=== PATIENT | female | born 1995 | race Caucasian/White ===

== ENCOUNTER 2023-02-02 09:32 | Inpatient (IN) | payer OTHER, SELFPAY ==
--- NOTE | 2023-01-24 14:14 | HP.PCM_ITS ---
History and Physical Date of Admission: 02/02/23 fHPI: The patient is a 27 year old female presenting for pre-operative visit. She is scheduled for , for elective primary c/s on 02/02/23. Procedure discussed along with risks, benefits and complications. Other alternatives discussed for management. Consent form signed? Yes. ? ? PAST MEDICAL HISTORY PAST MEDICAL HISTORY Diagnosis Date ? Allergies ? ? Asthma ? ? ? PAST SURGICAL HISTORY PAST SURGICAL HISTORY Procedure Laterality Date ? MYRINGOTOMY W TUBE,BILATERAL(2) ? ? ? PAST SURGICAL HISTORY OF Left 11/10/2016 ? left knee reconstruction ? PAST SURGICAL HISTORY OF Left ? ? knee ? ? ? CURRENT MEDICATIONS Current Outpatient Medications Medication Sig Dispense Refill ? blood sugar diagnostic test strip 1 Strip four times daily. Use as instructed 120 Strip 9 ? Lancets lancets 1 Each four times daily. Use as instructed 120 Each 9 ? prental multivitamin 27 mg iron- 800 mcg tablet Take 1 tablet by mouth once daily. ? ? ? fexofenadine (GABINO) 180 mg tablet Take 180 mg by mouth once daily. ? ? ? albuterol HFA (PROVENTIL HFA, VENTOLIN HFA) 90 mcg/actuation inhaler Inhale 2 Puffs as instructed. ? ? ? epinephrine (EPIPEN INJECTION) Inject intramuscularly as needed. ? ? ? No current facility-administered medications for this visit. ? ? ALLERGIES: Dilaudid [Hydromorphone (Bulk)], [place], Pollen Extracts, Ragweed Pollen, and Red Dye ? PERSONAL HISTORY: SOCIAL HISTORY Social History ? Tobacco Use ? Smoking status: Never ? Smokeless tobacco: Never Vaping Use ? Vaping Use: Never used Substance Use Topics ? Alcohol use: Not Currently ? ? Comment: occasional glass of wine ? Drug use: Never ? FAMILY HISTORY: FAMILY HISTORY FAMILY HISTORY Problem Relation Age of Onset ? No Known Problems Mother ? ? No Known Problems Father ? ? No Known Problems Sister ? ? other (congenital hearing deficit) Sister ? ? other (hearing deficit) Brother ? ? Breast Cancer Maternal Grandmother ? ? No Known Problems Maternal Grandfather ? ? other (stomach cancer) Paternal Grandmother ? ? Stroke Paternal Grandfather ? ? ? REVIEW OF SYMPTOMS: GENERAL: denies fevers or chills ENDOCRINOLOGY: has not been on steroids Cardiology : denies palpitations or chest pain Respiratory: denies SOB or cough Hematology: denies history of prolonged bleeding or easy bruising or VTE Allergy: Denies history of personal or family history of allergy to anesthesia ? PHYSICAL EXAMINATION: ? VITALS: Last menstrual period 05/05/2022. ? GENERAL: The patient is well nourished, well hydrated in no acute distress. , The patient is oriented to time, place, and person. NECK: Supple. No lynphadenopathy, normal thyroid, no thyromegaly. LUNGS: Clear to auscultation bilaterally. no wheezes, rhonchi or rales HEART: Regular rate and rhythm, Normal heart sounds, and No murmurs or gallops ? IMPRESSION: Estimated Date of Delivery: 02/09/23 G1 for primary elective c/s ? PLAN: The risks/benefits/alternatives and personal involved for the planned c- s were reviewed with the patient. Her questions were answered to her satisfaction and she desires to proceed. Consent was signed. I reviewed with her postop instructions and expectations. ? ? I have reviewed and updated past medical and surgical history, medications and allergies
[2023-02-02] VITALS (18 sets, daily range): BP systolic 81–123; BP diastolic 43–83; PULSE 60–90; RESP 16–18; TEMP 36.2–37.1; O2SAT 95–100; BMI 27.8
[2023-02-02] MEDS: Lactated Ringers 1,000 ML 999 ML IV (10:05)
[2023-02-02 10:32] LABS: Absolute Lymphocyte Count 2.24 X10^3/uL (0.83-4.51); Absolute Neutrophil Count 7.3 X10^3/uL (2.0-7.7); Basophil# 0.03 X10^3/uL; Basophil% 0.3 % (0-1); Eosinophil# 0.08 X10^3/uL; Eosinophils% 0.8 % (0-5); Hematocrit 38.6 % (37-47); Lymphocyte # 2.24 X10^3/ul (0.83-4.51); Lymphocyte % 21.8 % (19-41); Mean Corp Hgb Conc 33.7 g/dL (32-36); Mean Corpuscular Volume 92.1 fL (81-99); Mean Platelet Vol. 10.3 fl (6.2-12.0); Monocyte# 0.57 X10^3/uL; Monocyte% 5.5 % (0-10); NRBC Flagged by Analyzer 0 % (0-5); Neutrophil # 7.31 X10^3/uL (2.7-7.7); Neutrophil % 71.1 % (47-70); Platelet Count 335 K/mm3 (150-450); RBC Distribution Width CV 12.7 % (11.6-14.6); RBC Distribution Width SD 42.4 fl (35.1-43.9); Red Blood Count 4.19 M/mm3 (4.2-5.4); White Blood Count 10.3 K/mm3 (4.4-11.0)
[2023-02-02 10:40] LABS: Bedside Glucose 87 mg/dL (74-106)
[2023-02-02] MEDS: Acetaminophen 500 MG Tablet 1000 MG PO ×3 (10:56→23:09)
[2023-02-02] MEDS: Lactated Ringers 1,000 ML 150 ML IV (11:14)
[2023-02-02 11:31] LABS: Syphilis Antibodies Non-reactive
[2023-02-02] MEDS: Sodium Citrate/Citric Acid 30 ML UDC PO (12:09)
[2023-02-02] MEDS: Cefazolin 2 GM in 0.9% Normal Saline (100mL Bag) 100 ML IV (12:25)
--- NOTE | 2023-02-02 13:04 | EX.PCM.OBRPT ---
Maternal Data Information Final CAROL: 02/09/23 Gestational age: 39 0/7 Details Operative Information Date of Procedure: 02/02/23 Pre-Operative Diagnosis: 39 weeks Post-Operative Diagnosis: same Indications Narrative: Elective primary c/s Classification: Scheduled Procedure Type: low transverse automobile mechanic assistant #1: Milagro Acuna Type of Anesthesia: Spinal Anesthesiologist: Robin Alberts Special Medications: duramorph Antibiotic Given: Ancef 2 grams IV x1 Drain: Adler to straight drain Estimated Blood Loss: 800 Fluids Replaced: 1100 Procedure Start Time: 12:35 Procedure Stop Time: 13:00 Time of Delivery: 12:39 Findings Description of Procedure: The patient was taken to the operating room. She was prepped and draped in the dorsal supine position with a leftward tilt. A Pfannenstiel skin incision was made approximately 2 cm above the symphysis pubis and carried through to underlying layer fascia with the scalpel. The fascia was incised incised in the midline and extended laterally with blunt dissection. The rectus muscles were in the midline and the peritoneum was entered bluntly. The peritoneal incision was stretched and the bladder blade was placed. The uterine incision was made in a low transverse fashion with the scalpel and extended superiorly and inferiorly with blunt dissection. The amniotic membranes were ruptured bluntly and clear amniotic fluid returned. The 's head was brought to the incision in the flexed position and would not immediately deliver with fundal pressure. The incision was stretched. The vacuum was placed on the flexion point and vacuum created to 550 mmHg. I pulled with 1 pull and fundal pressure was given in the standard fashion the head delivered easily and the vacuum was removed. The remainder of the infant was delivered with gentle traction and fundal pressure in the standard fashion. The mouth and nares were bulb suctioned. The cord was clamped and cut as the was stimulated. Cord clamping was not delayed because the was not immediately vigoros but was starting to grimace and cry as he was handed off to the waiting nursing staff.. The placenta was delivered with fundal massage and gentle traction in the standard fashion. The uterus was exteriorized and cleared of all clots and debris. The cervix was dilated with a ring forcep. The uterine incision was closed with #1 Vicryl in a running locked fashion. A second layer of the same suture was used in an imbricating fashion to obtain hemostasis the incision was examined and was found to be hemostatic. The uterus was placed back into the peritoneal cavity and hemostasis was again confirmed. The rectus muscles were examined and any bleeding was Bovie cauterized. The parietal peritoneum and rectus muscles were closed en bloc with an 0 Vicryl running suture. The surgical teams outer gloves were then changed. The rectus fascia was examined and any bleeding was Bovie cauterized and the rectus fascia was closed with 1 Vicryl suture in a running standard fashion. The subcutaneous tissue was examining and any bleeding was Bovie cauterized. The subcutaneous tissue was reapproximated with 3-0 Vicryl suture. The skin was closed in a subcuticular fashion with 3-0 Monocryl suture.. I performed the entire procedure with assistance. All sponge, lap, and needle counts were correct. The patient was taken to her room for recovery in a stable condition. Presentation: Positive for Vertex Amniotic Membrane Rupture Type: Artificial Amniotic Fluid Description: Clear Placental Delivery Description: Expressed Placenta Disposition: [facility] Cord Vessel Description: 3 Vessels Cord Entanglement: Around neck x 1, loose Nuchal Cord Compression: Without compression Cord Gases: ABG and VBG Infant A Gender: Male (Cristo 8lb 1 oz) (1 minute): 8 (5 minute): 9 Delayed Cord Clamping: No Complications Complications: none
[2023-02-02] MEDS: Oxytocin 15 Units/NS 250ml 15 UNITS/250 ML IV.SOLN 83 UNITS IV (13:13)
[2023-02-02] MEDS: Ketorolac 30 MG/ML Syringe IV ×2 (13:46→20:00)
[2023-02-02 14:11] LABS: Bedside Glucose 85 mg/dL (74-106)
[2023-02-02] MEDS: Lactated Ringers 1,000 ML 100 ML IV (16:21)
[2023-02-02] MEDS: Ondansetron 4 MG/2 ML Vial IV (17:40)
--- NOTE | 2023-02-02 17:53 | NURSING ---
Instructed on incentive spirometer use
[2023-02-02] MEDS: 0.9% Saline Lock 10 ML Syringe IV (20:00)
[2023-02-03] MEDS: Ketorolac 30 MG/ML Syringe IV ×2 (01:29→08:03)
[2023-02-03] MEDS: 0.9% Saline Lock 10 ML Syringe IV ×2 (01:29→08:06)
[2023-02-03 01:30] VITALS: PULSE 77; RESP 14; O2SAT 95
[2023-02-03 05:00] VITALS: BP 93/60; PULSE 67; RESP 16; TEMP 36.2
[2023-02-03] MEDS: Acetaminophen 500 MG Tablet 1000 MG PO ×4 (05:02→23:50)
[2023-02-03 05:07] LABS: Hematocrit 30.6 % (37-47); Hemoglobin 10.5 g/dL (12.0-15.0); Mean Corp Hgb Conc 34.3 g/dL (32-36); Mean Corpuscular Hgb 31.6 pg (27.0-32.0); Mean Corpuscular Volume 92.2 fL (81-99); Mean Platelet Vol. 9.6 fl (6.2-12.0); Platelet Count 271 K/mm3 (150-450); RBC Distribution Width SD 43.2 fl (35.1-43.9); Red Blood Count 3.32 M/mm3 (4.2-5.4); White Blood Count 12.2 K/mm3 (4.4-11.0)
[2023-02-03 05:42] LABS: Bedside Glucose 98 mg/dL (74-106)
--- NOTE | 2023-02-03 08:30 | PN.OBGYN_ITS ---
Subjective Subjective Pain controlled Objective Data Objective Data Vital Signs: Vital Signs Temp Pulse Resp BP Pulse Ox O2 Del Method 97.2 F L 67 16 93/60 95 Room Air 02/03/23 05:00 02/03/23 05:00 02/03/23 05:00 02/03/23 05:00 02/03/23 01:30 02/03/23 05:00 Oxygen Delivery Method Room Air Weight: 152 lb 1.903 oz Body Mass Index (BMI) 27.8 Intake & Output: Intake and Output for Last 24 Hours 02/01/23 02/02/23 02/03/23 23:59 23:59 23:59 Intake Total 2957.5 / 2957.5 1813.33 / 1813.33 Output Total 1700 / 1700 700 / 700 Balance 1257.5 / 1257.5 1113.33 / 1113.33 Lab / Micro Data 02/03/23 04:55 Labs: Laboratory Results - last 24 hr 02/02/23 10:05: WBC 10.3, RBC 4.19 L, Hgb 13.0, Hct 38.6, MCV 92.1, MCH 31.0, MCHC 33.7, RDW Std Deviation 42.4, RDW Coeff of Caleb 12.7, Plt Count 335, MPV 10.3, Immature Gran % (Auto) 0.500, Neut % (Auto) 71.1 H, Lymph % (Auto) 21.8, Finney % (Auto) 5.5, Eos % (Auto) 0.8, Baso % (Auto) 0.3, Absolute Neuts (auto) 7.3, Absolute Lymphs (auto) 2.24, Nucleated RBC % 0, Syphilis Total Ab Non- reactive, Blood Type B POSITIVE, Antibody Screen NEGATIVE 02/02/23 10:22: POC Glucose 87 02/02/23 13:51: POC Glucose 85 02/03/23 04:55: WBC 12.2 H, RBC 3.32 L, Hgb 10.5 L, Hct 30.6 L, MCV 92.2, MCH 31.6, MCHC 34.3, RDW Std Deviation 43.2, RDW Coeff of Caleb 13.0, Plt Count 271, MPV 9.6 02/03/23 05:01: POC Glucose 98 Physical Exam Const alert, oriented x3 and no apparent distress HEENT normocephalic GI soft to palpation, non-tender and non-distended GI Narrative: fundus firm, mid & below umbilicus Incision - bandage c/d/i Extremity normal to inspection and no calf tenderness Assessment & Plan (1) Delivery by section: COMMENT: POD#1 PLAN: Plan Heme - HDS, cbc reviewed ID - AF, no signs infection GI/ - no issues ROutine care
[2023-02-03 08:44] VITALS: BP 98/56; PULSE 67; RESP 18; TEMP 36.4; O2SAT 98
[2023-02-03] MEDS: Senna/Docusate Sodium 1 Tablet PO (11:25)
[2023-02-03 13:00] VITALS: BP 104/62; PULSE 74; RESP 18; TEMP 36.6; O2SAT 99
[2023-02-03] MEDS: Ibuprofen 600 MG Tablet PO ×2 (14:03→19:44)
[2023-02-03] MEDS: SimETHICONE 80 MG Chewable Tablet PO ×2 (14:04→23:54)
[2023-02-03 21:00] VITALS: BP 109/68; PULSE 78; RESP 16; TEMP 36.6; O2SAT 99
[2023-02-04] MEDS: Ibuprofen 600 MG Tablet PO ×2 (02:06→08:17)
[2023-02-04 02:09] VITALS: BP 104/64; PULSE 87; RESP 16; TEMP 36.3; O2SAT 99
[2023-02-04] MEDS: Acetaminophen 500 MG Tablet 1000 MG PO ×2 (05:40→11:33)
[2023-02-04] MEDS: Senna/Docusate Sodium 1 Tablet PO (08:18)
[2023-02-04 08:30] VITALS: BP 99/63; PULSE 75; RESP 16; TEMP 36.8
[2023-02-04] MEDS: Etonogestrel 68 MG IMPLANT SC (11:29)
--- NOTE | 2023-02-04 11:29 | OP.PCM_ITS ---
Problems Associated Problem List Diagnoses (1) Nexplanon insertion: Report of Operation Date of Procedure: 02/04/23 Pre-Operative Diagnosis: nexplanon insertion Post-Operative Diagnosis: same Surgery/Procedure Performed:: nexplanon insertion Description of Surgical Findings:: normal skin left arm Surgeon: Sarahy Mera manager of loss prevention operations: None Type of Anesthesia: Local (1.5 cc of 1% lidocaine) Estimated Blood Loss (mL): 0 Description of Procedure: Consent was reviewed and signed. Risk benefits and alternatives have been reviewed. She desired to proceed. Left arm bent and previous scar from previous Nexplanon noted under the triceps muscle in the appropriate spot. The area was cleansed with chlorhexidine prep. Local 1% lidocaine solution was injected in the track of the area. The Nexplanon was then inserted in the usual sterile fashion without difficulty. Placement was confirmed by palpation. A Band-Aid was placed over the insertion site. Some Coban was then wrapped around the area. Patient tolerated the procedure well. Procedure Start Time: 11:22 Procedure Stop Time: 11:24 Complications none
--- NOTE | 2023-02-04 11:33 | PCM.PN.OB ---
Subjective Subjective Pain well controlled. Average lochia. Passing flatus, no bowel movement yet. Urinating and tolerating regular diet. Objective Data Objective Data Vital Signs: Vital Signs Temp Pulse Resp BP Pulse Ox O2 Del Method 98.2 F 75 16 99/63 99 Room Air 02/04/23 08:30 02/04/23 08:30 02/04/23 08:30 02/04/23 08:30 02/04/23 02:09 02/04/23 02:09 Oxygen Delivery Method Room Air Weight: 69 kg Body Mass Index (BMI) 27.8 Intake & Output: Intake and Output for Last 24 Hours 02/02/23 02/03/23 02/04/23 23:59 23:59 23:59 Intake Total 2957.5 / 2957.5 1813.33 / 1813.33 Output Total 1700 / 1700 700 / 700 Balance 1257.5 / 1257.5 1113.33 / 1113.33 Lab / Micro Data 02/03/23 04:55 Physical Exam Const alert General Appearance: cooperative GI GI Narrative: soft, moderate distention, fundus firm, appropriately tender. Abdominal bandage clean dry and intact Assessment & Plan (1) Delivery by section: COMMENT: POD#2 PLAN: Postoperative day #2 status post elective primary section. Patient and are doing well. Elects for discharge home today with routine instructions and follow-up.
--- NOTE | 2023-02-04 11:34 | PCM.DC.SUM ---
Providers Date of Admission: 02/02/23 Date of Discharge: 02/04/23 Reason For Visit: PRIMARY Diagnosis Discharge Diagnosis (1) Delivery by section: Status: Acute Plan: Postoperative day #2 status post elective primary section. Patient and are doing well. Elects for discharge home today with routine instructions and follow-up. Medications at Discharge Home Medications PNV no.63-iron,carbonyl 27mg-folic acid 800 mcg-dha 200 mg capsule 1 cap PO DAILY 02/02/23 ibuprofen 600 mg tablet 600 mg PO Q6H PRN Pain 20 days #60 TABLETS 02/04/23 Hospital Course Summary of Care Provided Minutes Spent on Discharge: 16 Hospital Course: Patient was admitted on 03/05/2023 for primary section at her request. This was performed without difficulty. By postoperative day #2 she was ambulating, urinating tolerating regular diet. She was discharged home with routine prescriptions and instructions. She received a Nexplanon on 02/04/2023 at her request for contraception. Weight / BMI Weight Weight: 69 kg Body Mass Index (BMI) 27.8 ABG / Lab / Microbiology Data 02/03/23 04:55 D/C Instructions Discharge Diet: No restrictions May resume sexual activity in: 4-6 weeks Lifting Restrictions: 20 pounds Additional Activity Instructions: Nothing in the vagina for 4-6 weeks. You may return to work/school in 6 weeks. Call your doctor if your incision/area has: Continuous Slow Oozing, Sudden Increased Bleeding, Increased Pain/ Swelling, Increased Redness and Foul Smelling Discharge Call your doctor if you observe: Fever of 101 or Higher and Using more than 1 pad per hour (for 2 hours) Suture Line Care: Avoid Pulling/Pushing and Avoid Pinching/Bending Cleanse incision/area with: Keep Dressing Clean & Dry Please Follow Up With: Sarahy Mera MD When: Call to make an appointment for an incision check in 1-2 [phone]. You will need a post check in 6 weeks. Meaningful Use Info Meaningful Use Diagnoses (Choose all that apply): None applicable Discharge Plan Admission Admit Date/Time: 02/02/23 09:32 Primary Reason for Your Visit: delivery Attending Provider: Sarahy Mera Discharge Orders/Prescriptions Prescriptions: New ibuprofen [ibuprofen] 600 mg tablet 600 mg PO Q6H PRN (Reason: Pain) 20 Days Qty: 60 1RF Continued PNV no.63-iron,hplpfueq-VY-tia 27 mg iron- 800 mcg-200 mg capsule 1 cap PO DAILY Disposition Disposition (needs filled in before D/C Order can be placed): Home, Self Care
== END 2023-02-04 13:45 | disposition home or self-care (01) | DRG 788 ==
PROVIDERS: Admitting Provider Obstetrics & Gynecology; Referring Provider Obstetrics & Gynecology; Visit Provider Obstetrics & Gynecology
DX: O69.2XX0 Labor and delivery complicated by other cord entanglement, with compression, not applicable or unspecified (principal); J45.909 Unspecified asthma, uncomplicated; O99.52 Diseases of the respiratory system complicating childbirth; Z37.0 Single live birth; Z3A.39 39 weeks gestation of pregnancy
CPT/HCPCS: 59025; 59050; 82962; 85025; 85027; 86780; 86850; 86900; 86901; 99221; 99252; J7120; A4216; G0378; G0463; J2405